=== PATIENT | female | born 1955 | race Caucasian/White ===

== ENCOUNTER → 2018-02-21 | Outpatient (CLI) | payer BC, MEDICARE, OTHER ==
--- NOTE | 2018-02-21 10:03 | KCIC ---
MRI Lumbar Spine without contrast History: Low back pain, left-sided sciatica, degenerative disc disease, previous surgery for a cyst Technique: Multiplanar, multi sequential noncontrast MR imaging was performed of the lumbar spine. Comparison: July 21, 2014 Findings: Lumbar vertebral body stature is maintained. Conus terminates at L1-2. There is no significant marrow edema. There is prominent edema of the posterior subcutaneous fat of the lower back. There is again negligible anterior spondylolisthesis L4-5. There is [id number] degenerative disc disease at L5-S1 and minimally L3-4 and L2-3, minimal disc desiccation L4-5 and L1-2. There is abnormal T2 and STIR hyperintense signal of the visualized distal cord difficult to accurately compare. T11-T12: Neural foramina and spinal canal are adequate. T12-L1: There is mild buckling of the ligamentum flavum. Neural foramina and spinal canal are adequate. L1-L2: Neural foramina and spinal canal are adequate. There is minimal buckling of the ligamentum flavum. L2-L3: Spinal canal and neural foramina are adequate. There is minimal facet degenerative change and buckling of the ligamentum flavum. There is minimal disc osteophyte complex in the left extraforaminal region near the extraforaminal left L2 nerve root without significant displacement. L3-L4: There is negligible disc osteophyte complex. There is mild buckling of the ligamentum flavum and facet degenerative change. Spinal canal is adequate. There is minimal disc osteophyte complex, again contact of the extraforaminal left L3 nerve root without displacement. Neural foramina are adequate. L4-L5: There is mild to moderate buckling of the ligamentum flavum. There is mild facet hypertrophic change greater on the right. There is similar minimal narrowing of the far lateral recesses greater on the right. There is again [id number] left and mild right neural foramina compromise. L5-S1: There is negligible disc osteophyte complex, contributes to mild narrowing of the left neural foramen. Right neural foramen is overall adequate. Spinal canal is adequate. There is mild bilateral facet hypertrophic change. Impression: 1. There is abnormal T2 and STIR hyperintense signal of the visualized distal cord. Superior extent may not be fully evaluated. Dedicated thoracic spine imaging to include pre and post contrast imaging is recommended. Findings could be due to sequela of demyelination, mass not excluded on this exam. 2. There is minimal narrowing of the far lateral recesses greater on the right at L4-5. 3. There is mume-sb-ivomtxqy narrowing of the left L4-5 neural foramen, minimal narrowing on the right at L4-5 and on the left at L5-S1. 4. There is nfez-sc-urhnzpmc degenerative disc disease at L5-S1, minimally more superiorly. 5. There is prominent edema of the posterior subcutaneous fat of the lower back, more likely to be incidental such as related to dependent edema unless there is suspicion for underlying soft tissue infection. Electronically signed by: Pete Harvey MD (02/21/2018 9:59 AM) [email or web address]
== END | disposition home or self-care (01) ==
LOC: KCIC MRI 07:56
PROVIDERS: ATTEND Family Medicine
DX: M51.37 Other intervertebral disc degeneration, lumbosacral region (principal); M48.061 Spinal stenosis, lumbar region without neurogenic claudication; M48.07 Spinal stenosis, lumbosacral region; M25.78 Osteophyte, vertebrae; R60.0 Localized edema
CPT/HCPCS: 72148

== ENCOUNTER → 2018-04-27 | Outpatient (CLI) | payer BC, MEDICARE, OTHER ==
--- NOTE | 2018-04-27 17:04 | KCIC ---
MRI of the thoracic spine without contrast 04/27/2018 CLINICAL HISTORY: Signal abnormality seen involving the distal thoracic spinal cord on recent MRI of the lumbar spine. TECHNIQUE: Unenhanced T1-weighted, T2-weighted and inversion recovery sagittal and T2 weighted and T1-weighted axial images of the thoracic spine were obtained. T2-weighted sagittal images of the cervical, thoracic and lumbar spine were obtained for localization purposes. FINDINGS: Comparison is made to the patient's MRI of the lumbar spine dated 02/21/2018. Very mild S-shaped curvature of the thoracolumbar spine is seen. Degenerative signal changes are seen involving all of the disks of the thoracic spine. Degenerative signal changes are seen within the marrow surrounding these discs. Extensive increased signal intensity is seen throughout the spinal cord on the T2-weighted and inversion recovery images extending from the C2 to T12 level. The signal abnormality is felt to most likely reflect a demyelinating disorder such as multiple sclerosis. The thoracic spinal cord has an abnormal contour throughout its course but is not expanded. Impingement upon the anterior cervical spinal cord is seen at C5-6 due to a focal disc osteophyte complex which is not well evaluated on this study. Degenerative changes are seen throughout the thoracic disc spaces consisting of minimal to mild generalized disc bulges and degenerative changes involving the facet joints. These findings do not result in significant central spinal canal or definite neural foraminal stenosis. IMPRESSION: 1. Extensive increased signal intensity is seen throughout the spinal cord extending from C2 to T12 on the inversion recovery and T2-weighted images. This signal abnormality is felt to most likely reflect a demyelinating disorder such as multiple sclerosis. Clinical correlation is recommended. 2. Impingement upon the anterior cervical spinal cord is seen at C5-6 which is not well evaluated on this study. 3. Degenerative changes are seen involving the thoracic spine. These findings do not result in areas of significant central spinal canal or neural foraminal stenosis. Electronically signed by: Dariusz Hurst MD (04/27/2018 5:01 PM) [email or web address]
== END | disposition home or self-care (01) ==
LOC: KCIC MRI 14:38
PROVIDERS: ATTEND Neurological Surgery
DX: M47.894 Other spondylosis, thoracic region (principal); M25.78 Osteophyte, vertebrae
CPT/HCPCS: 72146

== ENCOUNTER → 2018-05-04 | Outpatient (CLI) | payer BC, MEDICARE, OTHER ==
--- NOTE | 2018-05-04 14:43 | KCIC ---
MRI of the cervical spine without contrast 05/04/2018 CLINICAL HISTORY: Frequent falls. Abnormal signal intensity seen involving the cervical spinal cord on recent MRI of the thoracic spine. TECHNIQUE: Unenhanced T1-weighted, T2-weighted and inversion recovery sagittal and gradient echo and T2-weighted axial images of the cervical spine were obtained. FINDINGS: Comparison is made to the patient's MRI of the thoracic spine dated 04/27/2018. Mild lateral curvature of the cervical spine is seen convex to the right. There is slight reversal of the normal cervical lordosis. Degenerative signal changes are seen involving all of the disks of the cervical spine. Degenerative signal changes are seen within the marrow surrounding these discs. Loss of height of the C5-6 disc is seen. An oval-shaped area of abnormally increased signal intensity is seen involving the cervical spinal cord which extends from the C1 level to the C4-5 disc space on the T2-weighted and inversion recovery images. This measures 5.1 x 1.1 x 0.7 cm in craniocaudal, transverse and AP dimensions. Patchy increased signal intensity is seen on the T2-weighted and inversion recovery images extending inferiorly from this region involving the remaining cervical spinal cord. Increased signal intensity is seen involving the thoracic spinal cord on the T2-weighted images which corresponds to the signal abnormality seen on the patient's recent MRI of the thoracic spine. These findings are felt to most likely reflect a demyelinating disorder with multiple sclerosis being the most likely etiology. Clinical correlation is recommended. On the axial images at the C2-3 disc space there is a mild generalized disc bulge. Superimposed on this disc bulge is a left paracentral focal disc protrusion. This measures 2 mm in AP diameter. Degenerative changes are seen involving the uncovertebral and facet joints, left greater than right. These findings do not result in significant central spinal canal or neural foraminal stenosis. At the C3-4 disc space there is a mild generalized disc bulge. Superimposed on this disc bulge is a central/left paracentral focal disc protrusion. This measures 3 mm in AP diameter. Degenerative changes are seen involving the uncovertebral and facet joints, left greater than right. These findings when combined do not result in significant central spinal canal or neural foraminal stenosis. At the C4-5 disc space there is a mild to moderate generalized disc bulge. Superimposed on this disc bulge is a central/left paracentral disc osteophyte complex. This measures 4 mm in AP diameter. Degenerative changes are seen involving the uncovertebral and facet joints bilaterally. These findings result in mild left greater than right central spinal canal stenosis without cord impingement. No neural foraminal stenosis is seen. At the C5-6 disc space there is a mild to moderate generalized disc bulge. Degenerative changes are seen involving the uncovertebral and facet joints, left greater than right. These findings efface the anterior and posterior CSF resulting in mild to moderate central spinal canal stenosis with mild cord impingement. Moderate to severe left greater than right neural foraminal stenosis is seen. At the C6-7 disc space there is a mild generalized disc bulge. Degenerative changes are seen involving the uncovertebral and facet joints, left greater than right. These findings do not result in significant central spinal canal or neural foraminal stenosis. At the C7-T1 disc space there is a minimal generalized disc bulge. Degenerative changes are seen involving the facet joints bilaterally. These findings do not result in significant central spinal canal or neural foraminal stenosis. IMPRESSION: 1. Degenerative changes are seen throughout the cervical spine. These findings result in mild left greater than right central spinal canal stenosis at C4-5 and mild to moderate central spinal canal stenosis with mild cord impingement at C5-6. Moderate to severe left greater than right neural foraminal stenosis is seen at C5-6. 2. Extensive signal abnormality is seen involving the cervical spinal cord as outlined above. This felt to most likely reflect a demyelinating disorder such as multiple sclerosis. Clinical correlation is recommended. Electronically signed by: Dariusz Hurst MD (05/04/2018 2:40 PM) [email or web address]
== END | disposition home or self-care (01) ==
LOC: KCIC MRI 13:01
PROVIDERS: ATTEND Neurological Surgery
DX: M47.892 Other spondylosis, cervical region (principal); M48.02 Spinal stenosis, cervical region; M25.78 Osteophyte, vertebrae; M50.21 Other cervical disc displacement, high cervical region
CPT/HCPCS: 72141

== ENCOUNTER → 2018-12-24 | Outpatient (CLI) | payer BC, MEDICARE, OTHER ==
[2018-12-24 12:11] LABS: BASO % 1 % (0-3); EOS # 0.1 x10^3/uL (0.0-0.7); EOS % 2 % (0-3); HEMATOCRIT 42.8 % (36.0-47.0); HEMOGLOBIN 14.6 g/dL (12.0-15.5); LYMPH # 1.3 x10^3/uL (1.0-4.8); LYMPH % 29 % (24-48); MEAN CORPUSCULAR HEMOGLOBIN 31 pg (25-35); MEAN CORPUSCULAR HGB CONC 34 g/dL (31-37); MEAN CORPUSCULAR VOLUME 91 fL (79-100); MONO # 0.3 x10^3/uL (0.0-1.1); MONO % 6 % (0-9); NEUT # 2.8 x10^3/uL (1.8-7.7); NEUT % 63 % (31-73); PLATELET COUNT 140 x10^3/uL (140-400); RED BLOOD COUNT 4.71 x10^6/uL (3.50-5.40); RED CELL DISTRIBUTION WIDTH 13.7 % (11.5-14.5); WHITE BLOOD COUNT 4.4 x10^3/uL (4.0-11.0)
[2018-12-24 12:51] LABS: ALBUMIN 3.7 g/dL (3.4-5.0); ALBUMIN/GLOBULIN RATIO 1.1 (1.0-1.7); CALCIUM 8.9 mg/dL (8.5-10.1); CREATININE 0.8 mg/dL (0.6-1.0); GFR 72.9; MAGNESIUM 1.5 mg/dL (1.8-2.4); POTASSIUM 4.1 mmol/L (3.5-5.1); TOTAL BILIRUBIN 0.8 mg/dL (0.2-1.0); TOTAL PROTEIN 7.2 g/dL (6.4-8.2)
[2018-12-24 13:03] LABS: CHOLESTEROL/HDL RATIO 3.6
[2018-12-25 07:15] LABS: CALCIUM PTH 9.3 mg/dL (8.7-10.3); CREATININE PTH 0.75 mg/dL (0.57-1.00); PHOSPHORUS PTH 3.4 mg/dL (2.5-4.5); PTH INTACT 44 pg/mL (15-65)
[2018-12-25 09:17] LABS: HEMOGLOBIN A1C 7.8 % (4.8-5.6)
== END | disposition home or self-care (01) ==
LOC: LAB 11:29
PROVIDERS: ATTEND Surgery
DX: K91.2 Postsurgical malabsorption, not elsewhere classified (principal)
CPT/HCPCS: 80053; 80061; 82306; 82310; 82607; 82728; 83036; 83540; 83550; 83735; 83970; 84425; 84630; 85025

== ENCOUNTER → 2020-02-05 | Outpatient (CLI) | payer BC, MEDICARE, OTHER ==
[~2020-02-05] MED LIST: ATOR10TA60 PO; INSU100C4 SQ; INSU100I32 SQ; IOHEXOL 180 MG/ML 10 ML VIAL. ONE; LOSA25TA54 PO; METF10007 PO; METH-38 PO; OXYM20TA PO; OXYM5TAB PO; PREG200C PO; TRAZ-118 PO; methylPREDNISolone ACETATE 40 MG/ML VIAL. ONE; methylPREDNISolone ACETATE 80 MG/ML VIAL. ONE
--- NOTE | 2020-02-05 13:06 | PDOC1 ---
INITIAL PAIN CONSULT DATE OF SERVICE: DOS: DATE: 02/05/20 TIME: 12:56 CHIEF COMPLAINT: Chief Complaint: Neck and left upper extremity pain HISTORY OF PRESENT ILLNESS: 64-year-old female presents history of pain base the neck and left upper extremity for about 2-month status post falling on her deck at home on her left shoulder and side. Patient reports prior to that she had some mild pain but not nearly significant as after she fell. She reports now worse with repetitive motions reaching her left hand overhead any heavy weight lifting weightbearing driving a car with the left arm and repetitive motions. Patient scribes pain is constant sharp stabbing throbbing changes during the day worse with activity numbness and radiating at the left arm and hand occasionally into the pinky and fourth finger on the left side as well he describes as burning and aching the base the neck also bilaterally. Patient did have an MRI scan of the cervical spine showing degenerative changes throughout with mild left greater than right central spinal canal stenosis at C4-5 and mild to moderate central spinal canal stenosis with mild cord impingement at C5-6 moderate to severe left greater than right neuroforaminal stenosis at C5-6. Patient reports her disability rating 0- 10 10 being the worst is a 4 with family home responsibilities 7 with recreational activities 3 with social activity to a sexual behavior 1 with self- care and 0 with life support activities. Patient ports it occasionally wakes her from sleep at night most nights does not affect her bowel bladder control or ability to walk patient reports he has had some trigger point injections in December which was helpful at the time but the pain returned also doing exercise and is doing that currently no formal physical therapy. Patient has been taking oxymorphone which does decrease the pain by about 40% and took that as recently as this morning. Reports no loss of motor function but significant fatigability left upper extremity with any motions and weight lifting. PAST MEDICAL HISTORY: PMH: Diabetes, hypertension, arthritis, cigarette smoking PREVIOUS SURGERIES: Past Surgical Hx: Gastric bypass 2017, hysterectomy 2009, left shoulder surgery 2011 and 2013, bilateral knee replacements, lumbar hematoma evacuation after injection in 2002, tubal ligation, cholecystectomy 2008 CURRENT MEDICATIONS: Current Meds: Active Scripts Medications Dose Route/Sig Max Daily Dose Days Date Category Robaxin-750 (Methocarbamol) 750 Mg Tablet 1 Tab PO TID PRN 30 02/05/20 Reported Atorvastatin Calcium 10 Mg Tablet Unknown Dose PO HS 02/05/20 Reported Losartan Potassium (Losartan Potassium) 25 Mg Tablet 10 Mg PO DAILY 02/05/20 Reported Lyrica (Pregabalin) 200 Mg Capsule 1 Cap PO TID 02/05/20 Reported Trazodone Hcl 50 Mg Tablet 1 Tab PO QHS 02/05/20 Reported Oxymorphone Hcl 5 Mg Tablet 5 Mg PO PRN 3-4XDAILY PRN 02/05/20 Reported Oxymorphone Hcl 20 Mg Tab.er.12h 1 Tab PO PRN BID PRN MDD 2 Tablet(s) 30 02/05/20 Reported Metformin Hcl 1,000 Mg Tablet 1,000 Mg PO BIDWMEALS 02/05/20 Reported Basaglar Kwikpen U-100 (Insulin Glargine,Hum.rec.anlog) 100 Unit/1 Ml Insuln.pen 20 Unit SQ DAILY 02/05/20 Reported Novolog (Insulin Aspart) 100 Unit/1 Ml Cartridge Unknown Dose SQ QID 02/05/20 Reported ALLERGIES; Allergies: Coded Allergies: hydrocodone (Verified Allergy, Intermediate, 02/21/18) vancomycin (Verified Allergy, Intermediate, 02/21/18) FAMILY HISTORY: Family Hx: Diabetes, hypertension, hypercholesterolemia, heart disease, arterial stenosis SOCIAL HISTORY: Social Hx: Patient drinks about 2 alcoholic drinks monthly does not use any illegal illicit or recreational drugs smokes about 2 cigarettes a day and has for the past 40 years and is cutting down, patient is lives with her spouse and one grandchild she takes care of lives locally in [facility] REVIEW OF SYSTEMS: ROS: Positive for those items mentioned in history of present illness, all systems are reviewed, otherwise negative, is complete full and well-documented on patient's chart PHYSICAL EXAM: VS: Blood pressure is 145/77 pulse 80 respirations 16 temperature is 98.2 F height is 5 feet 6 inches weight 187 pounds PE: PHYSICAL EXAMINATION: GENERAL: The patient is awake, alert, oriented, appropriate, very pleasant demeanor HEENT: Shows normocephalic, atraumatic. Extraocular movements are intact and symmetrical. Oral cavity: Mucous membranes moist and pink. Dentition is intact. NECK: Shows anterior throat supple without palpable lymphadenopathy noted. Swallow reflex symmetrical. CHEST: Shows normal on inspection. Breath sounds are clear bilaterally, no rales rhonchi or wheezes auscultated. HEART: Shows S1, S2 clear. No murmurs auscultated. ABDOMEN: Soft, nontender, nondistended, obese. No palpable organomegaly is noted. No rebound or guarding demonstrated. BACK: Shows spine grossly in the midline. Normal-appearing cervical lordotic curvature. Cervical spine shows symmetrical paraspinous musculature inspection with palpation some moderate tenderness diffusely in the inferior aspect of the cervical paraspinous posterior bilaterally more the left than the right but without specific trigger points atrophy hypertrophy this is true into the superior medial trapezius bilaterally as well without radiation. Patient has good rotation motion of the cervical spine both laterally as well as full extension full forward flexion without significant difficulty or increase in pain. There is slightly increased thoracic kyphosis, some minor flattening of the lumbar lordotic curvature. Lumbar paraspinous muscles show symmetrical on inspection, on palpation shows only mild tenderness diffusely in the upper middle and lower distribution. EXTREMITIES: Upper extremities show deep tendon reflexes 2+ in the biceps and tricep tendons. Motor exam is 5 on a scale of 5 with right donor floor technician strength, biceps and triceps flexion and 4/5 on the left. Peripheral pulses are 2+ radial. No peripheral edema is noted bilaterally. Upper extremities are warm and dry to touch, equal in color and appearance. SKIN: Shows warm and dry, good turgor. No edema. No sores, rashes or bruising throughout. IMPRESSION: Impression: 64-year-old female with approximate 2-month history status post fall at home with pain base of the neck left shoulder and upper extremity radicular fashion MRI scan cervical spine as noted Diabetes Hypertension Arthritis Plan: Options were discussed with the patient including conservative medical management physical therapies interventional techniques. Patient would like to pursue interventional techniques. We discussed a cervical epidural steroid injection using description as well as anatomical model to describe the procedure. Risks were discussed including but not limited to: Bleeding, infection, possibility of epidural hematoma and subsequent neurological compromise, dural puncture, headaches, spinal cord and/or nerve damage, side effects of steroid medication, and poor results regarding pain control. Patient understands wished to proceed. Patient will return to clinic in approximate 2 weeks for follow-up, was counseled as to return appointment activity level and side effects to be aware of. Procedure cervical epidural steroid injection at the C6-7 level, using local anesthetic under sterile prep and drape using C-arm fluoroscopic guidance under local anesthesia medications injected ; 120 mg Depo-Medrol + 5 mL normal saline and 2 mL contrast; condition at discharge is stable patient tolerated procedure well. and had no complications ALYSSA SANCHEZ MD Feb 05, 2020 13:06
== END | disposition home or self-care (01) ==
LOC: PNCL 10:03
PROVIDERS: ATTEND Anesthesiology
DX: M54.2 Cervicalgia (principal); M79.602 Pain in left arm; M48.02 Spinal stenosis, cervical region; I10 Essential (primary) hypertension; E11.9 Type 2 diabetes mellitus without complications; M19.90 Unspecified osteoarthritis, unspecified site; Z87.891 Personal history of nicotine dependence; Z90.710 Acquired absence of both cervix and uterus; Z98.51 Tubal ligation status; Z98.890 Other specified postprocedural states; Z79.899 Other long term (current) drug therapy; Z79.4 Long term (current) use of insulin; Z90.49 Acquired absence of other specified parts of digestive tract; Z82.49 Family history of ischemic heart disease and other diseases of the circulatory system; Z83.3 Family history of diabetes mellitus; Z88.8 Allergy status to other drugs, medicaments and biological substances
CPT/HCPCS: 62321; J1030; J1040; Q9965

== ENCOUNTER → 2020-03-05 | Outpatient (CLI) | payer BC, MEDICARE, OTHER ==
--- NOTE | 2020-03-05 11:35 | PDOC ---
Progress Note - Pain Clinic Date of Service: DOS: DATE: 03/05/20 TIME: 11:27 Diagnosis: Dx: Cervical radiculopathy with cervical degenerative disease and cervical spinal stenosis History or Present Illness: HPI: 64-year-old female returns follow-up status post cervical epidural steroid injection x1. Patient reports about 20% improvement in the base the neck and left shoulder especially the first few days was doing much better but then the pain returned down to only about 20% improvement overall. Patient reports no new motor or sensory deficit still significant pain in the base the neck and left shoulder left upper extremity some numbness tingling in the left hand specially the fourth and fifth fingers. Patient reports her pain is a 6-7 on scale 10 is worse over the past week 5 on average 3 to 4 days least is a 4 today. Patient reports initially she was doing better with increased activity doing work activities household activities greater ease and comfort travel with greater ease sleeping better at night but now the pain is beginning to awaken her from sleep again about every 4 hours. Patient reports it is tingling and burning in the left hand sharp and dull alternating in the base of the neck and shoulder shooting pain in the left arm which can be constant with repetitive activity lifting items and reaching. Patient reports no new motor or sensory deficits. Physical Exam: VS: Blood pressure is 145/77 pulse 66 respirations 18 temperature 97.3 F height 5 feet 6 inches weight 183 PE: PHYSICAL EXAMINATION: GENERAL: The patient is awake, alert, oriented, appropriate, very pleasant demeanor HEENT: Shows normocephalic, atraumatic. Extraocular movements are intact and symmetrical. Oral cavity: Mucous membranes moist and pink. NECK: Shows anterior throat supple without palpable lymphadenopathy noted. Swallow reflex symmetrical. CHEST: Shows normal on inspection. Breath sounds are clear bilaterally. HEART: Shows S1, S2 clear. No murmurs auscultated. ABDOMEN: Soft, nontender, nondistended, obese. No palpable organomegaly is noted. No rebound or guarding demonstrated. BACK: Shows spine grossly in the midline. Normal-appearing cervical lordotic curvature. Cervical paraspinous muscles show symmetrical on inspection on p alpation some moderate tenderness diffusely in the low cervical paraspinous musculature and also with the superior medial trapezius greater on the left than the right but without specific trigger points without atrophy hypertrophy. Patient shows good rotation motion cervical spine both laterally as well as extension flexion without significant increase in pain. There is slightly increased thoracic kyphosis, some minor flattening of the lumbar lordotic curvature. EXTREMITIES: Upper extremities show deep tendon reflexes 2+ in the biceps and triceps tendons. Motor exam is 5 on a scale of 5 with right hip, biceps and tricep flexion and 4/5 on the left. Peripheral pulses are 2+ radial. No peripheral edema is noted bilaterally. SKIN: Shows warm and dry, good turgor. No edema. No sores, rashes or bruising throughout. Procedure: Procedure: Options were discussed with the patient. Patient chart was reviewed as her current medication regimen updated current review of systems updated today as well. We will proceed with a second in series cervical epidural steroid injection today with fluoroscopic guidance. Risks were discussed including but not limited to: Bleeding, infection, possibility of epidural hematoma and subsequent neurological compromise, dural puncture, headaches, spinal cord and/or nerve damage, side effects of steroid medication, and poor results regarding pain control. Patient understands wished to proceed. Patient will return to clinic in approximate 2 weeks for follow-up, was counseled as return appointment activity level and side effects to be aware of. Medication Injected: Med Injected: Procedure cervical epidural steroid injection at the C6-7 level, using local anesthetic under sterile prep and drape using C-arm fluoroscopic guidance under local anesthesia medications injected ; 120 mg Depo-Medrol + 5 mL normal saline and 2 mL contrast; condition at discharge is stable patient tolerated procedure well. and had no complications Condition at Discharge: Condition at Discharge: Condition at discharge stable, patient tolerated procedure well and had no complications. ALYSSA SANCHEZ MD Mar 05, 2020 11:35
== END | disposition home or self-care (01) ==
LOC: PNCL 10:17
PROVIDERS: ATTEND Anesthesiology
DX: M50.123 Cervical disc disorder at C6-C7 level with radiculopathy (principal); M48.02 Spinal stenosis, cervical region
CPT/HCPCS: 62321; J1030; J1040; Q9965

== ENCOUNTER 2020-04-02 07:22 | Day surgery (SDC) | payer MEDICARE, BC, OTHER ==
[~2020-04-02] VITALS: Ht 162.6 cm; Wt 87.5 kg
[~2020-04-02 07:22] MED LIST changes: +ASCO-151 PO; +ATOR40TA PO; +CHOL2400 MC; -IOHEXOL 180 MG/ML 10 ML VIAL. ONE; +IV RINGERS,LACTATED 1000ML 1,000 ML IV SCH; +MORPHINE SULFATE 2 MG/ML VIAL. IVP PRN; +MULT-735 PO; +ONDA4TAB7 PO; +OXYM30TA PO; +POLY17PO29 PO; +PROCHLORPERAZINE 10 MG/2 ML VIAL. IVP PRN; +[UNRECOGNIZED DRUG - OTHER]; +fentaNYL PF VIAL 100 MCG/2 ML VIAL IVP PRN; -methylPREDNISolone ACETATE 40 MG/ML VIAL. ONE; -methylPREDNISolone ACETATE 80 MG/ML VIAL. ONE
[2020-04-02] MEDS ORDERED: BUPIVACAINE-EPI 0.25% 30 ML VIAL KIT. ONE ×2 (07:45→10:14)
[2020-04-02] MEDS ORDERED: ROPIVacaine 0.5% PF 20 ML VIAL. ONE (08:03)
[2020-04-02] MEDS ORDERED: DEXAMETHASONE SOD PHOS 4 MG/ML VIAL ONE ×2 (08:04→09:05)
[2020-04-02] MEDS ORDERED: MIDAZOLAM HCL/PF 2 MG/2 ML VIAL. ONE (08:08)
[2020-04-02] MEDS ORDERED: fentaNYL PF VIAL 250 MCG/5 ML VIAL ONE (08:08)
[2020-04-02] MEDS ORDERED: PROPOFOL 10 MG/ML (20ML) VIAL. IV ONE (08:16)
[2020-04-02] MEDS ORDERED: LIDOCAINE 2% PF 5 ML VIAL. ONE (08:16)
[2020-04-02] MEDS ORDERED: SUCCINYLCHOLINE 200 MG/10 ML VIAL. ONE (08:16)
[2020-04-02] MEDS ORDERED: ROCURONIUM 50 MG/5 ML VIAL. ONE (08:16)
[2020-04-02 08:27] LABS: BASO % 1 % (0-3); EOS # 0.1 x10^3/uL (0.0-0.7); EOS % 2 % (0-3); HEMATOCRIT 33.3 % (36.0-47.0); HEMOGLOBIN 11.3 g/dL (12.0-15.5); LYMPH # 1.1 x10^3/uL (1.0-4.8); LYMPH % 19 % (24-48); MEAN CORPUSCULAR HEMOGLOBIN 30 pg (25-35); MEAN CORPUSCULAR HGB CONC 34 g/dL (31-37); MEAN CORPUSCULAR VOLUME 88 fL (79-100); MONO # 0.4 x10^3/uL (0.0-1.1); MONO % 7 % (0-9); NEUT # 4.3 x10^3/uL (1.8-7.7); NEUT % 72 % (31-73); PLATELET COUNT 155 x10^3/uL (140-400); RED BLOOD COUNT 3.79 x10^6/uL (3.50-5.40); RED CELL DISTRIBUTION WIDTH 13.1 % (11.5-14.5)
[2020-04-02 08:44] LABS: CALCIUM 8.8 mg/dL (8.5-10.1); CREATININE 0.8 mg/dL (0.6-1.0); GFR 72.7; POTASSIUM 4.1 mmol/L (3.5-5.1)
[2020-04-02 08:49] LABS: ALBUMIN 3.1 g/dL (3.4-5.0); ALBUMIN/GLOBULIN RATIO 0.9 (1.0-1.7); TOTAL BILIRUBIN 1.8 mg/dL (0.2-1.0); TOTAL PROTEIN 6.5 g/dL (6.4-8.2)
[2020-04-02] MEDS ORDERED: GLYCOPYRROLATE 1 MG/5 ML VIAL. ONE (09:03)
[2020-04-02] MEDS ORDERED: NEOSTIGMINE METHYLSULFATE 5 MG/5 ML SYRINGE. ONE (09:03)
[2020-04-02] MEDS ORDERED: PHENYLEPHRINE in 0.9% NACL PF 1 MG/10 ML SYRINGE. IV ONE (09:03)
[2020-04-02] MEDS ORDERED: DESFLURANE 61 TO 120 MINUTES IH ONE (09:03)
[2020-04-02] MEDS ORDERED: ONDANSETRON PF 4 MG/2 ML VIAL. ONE (09:04)
[2020-04-02] MEDS ORDERED: INSULIN LISPRO 100 UNIT/ML 3ML VIAL for OP,RR ONLY. SQ PRN (10:00)
[2020-04-02] MEDS ORDERED: HYDROmorphone 2 MG/ML VIAL IVP PRN (10:00)
[2020-04-02] MEDS ORDERED: BUPIVACAINE-EPI 0.5% 30 ML VIAL KIT. ONE (10:14)
--- NOTE | 2020-04-02 12:11 | DISCH ---
DISCHARGE INSTRUCTIONS Condition on Discharge Condition on Discharge: Stable Activity After Discharge Activity Instructions for Disc: Other, see below (Gentle range of motion with pendulum exercises left arm, may eat right type do hair or other fine motor exercises no pushing off for weightbearing) Diet after Discharge Diet after Discharge: Diabetic No Calorie Level Wound Incision Care Wound/Incision Care: Change dressing (May remove dressings in 3 days, okay to shower if no drainage) Contacting the DRDee after DC Call your doctor for: Concerns you may have Follow-Up Follow up with: Dr. East 1 week YUE EAST MD Apr 02, 2020 12:11
[2020-04-02 12:15] VITALS: BP 127/56
--- NOTE | 2020-04-02 15:17 | PDOC4 ---
Operative Note Operative Note Date of surgery: 03/25/2020 Preoperative diagnosis: Displaced left proximal humerus fracture Postoperative diagnosis: Same Operative procedure: Operative reduction internal fixation left proximal humerus fracture Surgeon: Cruzito [employer] Instructor: Messi singh Anesthesia: General Estimated blood loss: 150 cc Complications: None Operative indications: Please see my orthopedic clinic note for detailed operative indications Operative text: Patient was identified procedure verified patient placed in the supine position on the operating table. After adequate amounts of general anesthesia plus a pre-existing scalene block were obtained she was placed in the beachchair position with the T-Max headrest all bony prominences were well- padded and the left upper extremity was prepped and draped in standard sterile f ashion and placed in the spider arm hawkins. After timeout was performed patient procedure identified and verified a deltopectoral incision was made cephalic vein and deltoid were taken laterally and the deltoid was bluntly released distally. The proximal humerus was reduced under fluoroscopic guidance and a 4 hole low Alps titanium locking plate was placed with a guidewire up the center of the humeral head and shaft fixation carried out. Proximal head fixation was carried out with appropriate sized nonthreaded pins that were locked and additional shaft fixation both in a locking and nonlocking fashion. Near anatomic reduction was obtained under multiple fluoroscopic views and hardware placement and length was checked as well. Irrigation carried out normal saline solution and closure accomplished with buried Vicryl suture subcuticular Monocryl and sterile dressings were applied patient was returned to recovery room in stable condition having tolerated the procedure well. Messi garcia assist was present for the procedure assisted in the patient positioning prepping draping retraction closure and dressings YUE MAGANA MD Apr 02, 2020 15:17
== END 2020-04-02 12:25 | disposition home or self-care (01) ==
LOC: SURG 07:22
PROVIDERS: ATTEND Orthopaedic Surgery
DX: S42.202A Unspecified fracture of upper end of left humerus, initial encounter for closed fracture (principal); E78.00 Pure hypercholesterolemia, unspecified; G47.30 Sleep apnea, unspecified; E66.9 Obesity, unspecified; F41.9 Anxiety disorder, unspecified; I12.9 Hypertensive chronic kidney disease with stage 1 through stage 4 chronic kidney disease, or unspecified chronic kidney disease; E11.22 Type 2 diabetes mellitus with diabetic chronic kidney disease; N18.30 Chronic kidney disease, stage 3 unspecified; Z79.4 Long term (current) use of insulin; Z79.899 Other long term (current) drug therapy; Z90.710 Acquired absence of both cervix and uterus; Z98.51 Tubal ligation status; Z98.890 Other specified postprocedural states; Z87.891 Personal history of nicotine dependence; Z72.89 Other problems related to lifestyle; Z88.8 Allergy status to other drugs, medicaments and biological substances; Z20.822 Contact with and (suspected) exposure to COVID-19; X58.XXXA Exposure to other specified factors, initial encounter; Y93.89 Activity, other specified; Y92.89 Other specified places as the place of occurrence of the external cause; Y99.8 Other external cause status
CPT/HCPCS: 23615; 80053; 85025; 87426; A4565; C1713; C9803; J0330; J0690; J1100; J2250; J2370; J2405; J2704; J2710; J2795; J3010; J3490; J7120; U0003; 76000

== ENCOUNTER → 2020-07-13 | Outpatient (CLI) | payer MEDICARE, BC, OTHER ==
[~2020-07-13] MED LIST changes: -IV RINGERS,LACTATED 1000ML 1,000 ML IV SCH; -MORPHINE SULFATE 2 MG/ML VIAL. IVP PRN; -PROCHLORPERAZINE 10 MG/2 ML VIAL. IVP PRN; -fentaNYL PF VIAL 100 MCG/2 ML VIAL IVP PRN
--- NOTE | 2020-07-13 16:23 | KCIC ---
EXAMINATION: Magnetic resonance imaging (MRI) of the cervical spine without contrast 07/13/2020 2:50 P M HISTORY: Radicular neck pain. TECHNIQUE: Multiplanar multi-weighted MRI of the cervical spine was performed without intravenous con trast using the standard cervical spine protocol. Contrast information: None administered COMPARISON: MRI cervical spine 05/04/2018 FINDINGS: There is 2 mm anterolisthesis of C3 on C4. There is 3 mm retrolisthesis of C5 on C6. Vertebral body h eights are maintained. Marrow signal intensity is normal in all sequences. There is persistent cord s ignal alteration from the mid C2 vertebral level through C7 vertebral level with mild cord expansion at C3-C4. Findings are not significantly changed. There is moderate disc height loss at C5-C6. Mild a nterior marginal osteophytosis. Posterior fossa is normal in appearance. Visualized brainstem is inta ct. Skull base is intact. Craniocervical junction is normal. Atlantoaxial articulation is intact. The re is no prevertebral edema. There is thickening of the posterior longitudinal ligament versus ossifi cation of the posterior longitudinal ligament. C2-C3: There is a posterior disc osteophyte complex asymmetric to the left, stable. Mild left facet a rthropathy. No neuroforaminal or spinal canal stenosis. C3-C4: There is a posterior disc osteophyte complex with central disc protrusion. There is mild left facet arthropathy. Mild left neuroforaminal stenosis. Mild spinal canal stenosis without deformity of the cord. C4-C5: There is a posterior disc osteophyte complex with left central disc extrusion which appears st able. There is moderate deformity of the ventral cord, mildly progressed. Degree of cord signal alter ation is recommended stable. Mild right neural foraminal stenosis. Mild facet and uncovertebral joint disease. C5-C6: There is a posterior disc osteophyte complex. Mild facet and uncovertebral joint disease. Mode rate bilateral neuroforaminal stenosis. Mild/moderate spinal canal stenosis, unchanged. The 7: There is a posterior disc osteophyte complex. Mild facet and uncovertebral joint disease. Mild bilateral neuroforaminal stenosis. Mild to moderate spinal canal stenosis with unchanged cord signal alteration. C7-T1: Disc is normal in configuration. Cord signal alteration appears unchanged. No cord compression . No neuroforaminal stenosis. IMPRESSION: 1. There is no significant interval change involving cord T2 hyperintensity from C2 through C7 with c ord expansion at C3-C4. There may be subtle increased stenosis at C4-C5 secondary to left central dis c extrusion as detailed above. Next on 2. Moderate degenerative changes of the cervical spine. There may be thickening of the posterior long itudinal ligament versus ossification. Electronically signed by: Viktoriya Machado MD (07/13/2020 4:21 PM) [id number]
== END ==
LOC: KCIC MRI 14:39
PROVIDERS: ATTEND Physician Assistant
DX: M47.22 Other spondylosis with radiculopathy, cervical region (principal); M48.02 Spinal stenosis, cervical region; M25.78 Osteophyte, vertebrae
CPT/HCPCS: 72141